=== PATIENT | male | born 1950 | race Caucasian/White ===

== ENCOUNTER 2017-05-05 23:50 | Emergency (ER) | payer OTHER ==
[2017-05-06] MEDS ORDERED: diltiaZEM INJ 5 MG/ML VIAL IVP STA (00:02)
[2017-05-06] MEDS ORDERED: diltiaZEM INJ 5 MG/ML VIAL ONE (00:07)
[2017-05-06] MEDS ORDERED: SODIUM CHLORIDE FLUSH 0.9% 10 ML SYRINGE IVP ONE (00:08)
[2017-05-06 00:17] LABS: PT - PROTHROMBIN TIME 10.9 secs (9.9-12.6)
[2017-05-06 00:23] LABS: ALBUMIN/GLOBULIN RATIO 1.7 (1.0-2.2); BILIRUBIN,TOTAL 0.6 mg/dL (0.2-1.0); BUN - BLOOD UREA NITROGEN 17 mg/dL (6-20); CARBON DIOXIDE - CO2 26 mmol/L (21-32); CHLORIDE 106 mmol/L (101-111); CREATININE 1.1 mg/dL (0.6-1.2); GFR - MDRD 67 (>89); GLUCOSE 112 mg/dL (70-100); LIPASE 60 U/L (22-51); MAGNESIUM 2.2 mg/dL (1.7-2.8); PHOSPHORUS 3.7 mg/dL (2.5-4.6); POTASSIUM 3.3 mmol/L (3.5-5.0); SODIUM 139 mmol/L (135-145); TOTAL PROTEIN 6.8 g/dL (6.7-8.2)
--- NOTE | 2017-05-06 00:33 | XRAY Preliminary Report ---
Exam: XR CHEST 1 VIEW IMPRESSION: Normal single view chest. [facility] SITE ID: [id number]
--- NOTE | 2017-05-06 00:40 | ED Physician Documentation ---
PD HPI CHEST PAIN - Stated complaint Stated Complaint: PANIC ATTACK - Chief complaint Chief Complaint: Cardiac - History obtained from History obtained from: Patient - History of Present Illness Timing - onset: How many minutes ago (45) Timing - onset during: Rest Timing - details: Abrupt onset, Still present Quality: Throbbing Location: Substernal, Left chest Associated symptoms: Shortness of air, Palpitations Similar symptoms before: No diagnosis Recently seen: Not recently seen - Additional information Additional information: Patient is a 67 year old male who is presenting to the emergency department for what he feels is a panic attack. patient states that he was lying down and he felt like his heart was racing and irregular. Patient states that he has been stressed about retiring and thought that may be what was causing his symptoms. Review of Systems Constitutional: denies: Fever, Chills Eyes: denies: Decreased vision, Photophobia Nose: denies: Rhinorrhea / runny nose, Congestion Throat: denies: Sore throat Cardiac: reports: Palpitations. denies: Chest pain / pressure, Calf pain Respiratory: denies: Dyspnea, Cough, Wheezing GI: denies: Abdominal Pain, Nausea, Vomiting Skin: denies: Rash, Lesions Musculoskeletal: denies: Neck pain, Back pain, Extremity pain Neurologic: denies: Generalized weakness, Focal weakness, Numbness Immunocompromised: denies: Immunocompromised PD PAST MEDICAL HISTORY - Past Medical History Past Medical History: Yes Cardiovascular: High cholesterol GI: GERD - Past Surgical History Past Surgical History: Yes General: Appendectomy - Present Medications Home Medications: Ambulatory Orders Medication Instructions Recorded Confirmed Aspirin [Mary Chewable] 81 mg PO DAILY 02/03/15 02/03/15 No Known Home Medications [No 02/03/15 02/03/15 Known Home Medications] - Allergies Allergies/Adverse Reactions: Allergies Allergy/AdvReac Type Severity Reaction Status Date / Time No Known Drug Allergies Allergy Verified 02/03/15 17:24 - Social History Does the pt smoke?: No Smoking Status: Never smoker Does the pt drink ETOH?: Yes ETOH Use: Wine, Liquor Does the pt have substance abuse?: No - Immunizations Immunizations are current?: No Immunizations: TDAP >10years/unknown - POLST Patient has POLST: No PD ED PE NORMAL - Vitals Vital signs reviewed: Yes (tachycardic) - General General: Alert and oriented X 3, Well developed/nourished - HEENT HEENT: Atraumatic, PERRL, Pharynx benign - Neck Neck: No JVD - Abdomen Abdomen: Soft, Non tender, Non distended - Derm Derm: Normal color, Warm and dry, No rash - Extremities Extremities: No deformity, Normal ROM s pain, No edema, No calf tenderness / cord - Neuro Neuro: Alert and oriented X 3, No motor deficit, No sensory deficit, Normal speech PD ED PE EXPANDED - General General: Alert, Anxious - Cardiac Cardiac: Tachy, Irregularly irregular - Respiratory Respiratory: Clear to ausultation fran Results - Vitals Vitals: Vital Signs - 24 hr 05/06/17 05/06/17 05/06/17 00:11 00:16 00:48 Temperature 37.1 C Heart Rate 148 H 96 128 H Respiratory 18 18 18 Rate Blood Pressure 153/128 H 137/88 H 128/65 O2 Saturation 100 98 99 05/06/17 01:10 Temperature Heart Rate 120 H Respiratory 16 Rate Blood Pressure 122/79 O2 Saturation 100 Oxygen O2 Source Room air - EKG (time done) 2358 Rate: Rate (enter#) (145) Rhythm: Atrial fibrillation [place]: Normal Ischemia: ST depression Other comments: Other comments (a fib with rvr, rate related ischemia) Compare to prior EKG: Old EKG unavailable Computer interpretation: Agree with computer 0020 Rate: Rate (enter#) (110) Rhythm: Atrial fibrillation Intervals: Normal MA Other comments: Other comments (still a fib at lower rate) Compare to prior EKG: Changed from prior EKG Computer interpretation: Agree with computer 0209 Rate: Rate (enter#) (79) Rhythm: NSR [place]: Normal Intervals: Normal MA QRS: Normal Ischemia: Normal ST segments Compare to prior EKG: Changed from prior EKG - Labs Labs: Laboratory Tests 05/06/17 05/06/17 05/06/17 00:01 00:01 00:01 PT 10.9 INR 1.0 Sodium 139 Potassium 3.3 L Chloride 106 Carbon Dioxide 26 Anion Gap 7.0 BUN 17 Creatinine 1.1 Estimated GFR (MDRD) 67 L Glucose 112 H Calcium 9.0 Phosphorus 3.7 Magnesium 2.2 Total Bilirubin 0.6 AST 23 ALT 28 Alkaline Phosphatase 52 Troponin I < 0.04 B-Natriuretic Peptide Total Protein 6.8 Albumin 4.3 Globulin 2.5 Albumin/Globulin Ratio 1.7 Lipase 60 H TSH Ethyl Alcohol < 5.0 05/06/17 05/06/17 00:01 00:01 PT INR Sodium Potassium Chloride Carbon Dioxide Anion Gap BUN Creatinine Estimated GFR (MDRD) Glucose Calcium Phosphorus Magnesium Total Bilirubin AST ALT Alkaline Phosphatase Troponin I B-Natriuretic Peptide 34 Total Protein Albumin Globulin Albumin/Globulin Ratio Lipase TSH 2.76 Ethyl Alcohol - Rads (name of study) chest x-ray Radiology: Final report received (within normal limits) Procedures - Procedural sedation Sedation prep: Informed consent, Time out completed, Last meal, AHA 1 - healthy Sedation medications: fentanyl, propofol Patient status during sedation: Drowsy, Responds to verbal, Vitals remained stable, Maintained airway, Recovered uneventfully Sedation recovery: Back to baseline - Cardioversion 1 Time of attempt: 01:50 Indication: Tachyarrhythmia Risks, benefits, alternatives explained to: Pt Prep: IV, O2, vehicle monitor technician, Pulse ox, Airway equip Meds: Fentanyl, Propofol CS via: Pads Sync: Biphasic, 100j Post cardioversion rhythm: A-fib Performed by: ED MD PD MEDICAL DECISION MAKING - ED course Complexity details: reviewed old records, reviewed results, re-evaluated patient , considered differential, d/w patient ED course: Patient was seen and examined at bedside. Patient was placed on a monitor and found to be in a fib at around 145 bpm. ekg was performed and did show a fib. Patient was asked whether or not he wanted chemical or electrical cardioversion and he said chemical. Patient was treated with 20mg of diltiazem and his rate went down to 90-110. as the medicine wore off, patient returned back up to the 130s so was placed on a cardizem drip with good response. Hospitalist was contacted and the case was discussed with him, it was decided patient would be admitted. While awaiting a floor bed patient stated that he wanted to try electric cardioversion. patient was successfully cardioverted at the first attempt at 100J. (see procedure note). Patient required no further work up at this time and was stable for discharge with outpatient follow up. - Critical Care Time(min): 30 Time Includes: Direct patient care Data interpretation: Labs, CXR, Cardiac output Departure - Departure Disposition: 01 Home, Self Care Clinical Impression: Atrial fibrillation Condition: Good Instructions: Atrial Fibrillation Dc Follow-Up: Renetta Hammer PA-C [Primary Care Provider] - Within 3 Days Comments: Your symptoms today were caused by a-fib. we were able to convert it with electricity. Now that you have had it before you are likely to get it again. there is no need to start medication at this point. You should continue with your daily aspirin. You should follow up with your pmd within the next few day for holter monitor. You should also cut back on your drinking as it could contributing to your a fib. You should return to the emergency department at any time if the symptoms return.
[2017-05-06] MEDS ORDERED: diltiaZEM INJ 125 MG in DEXTROSE 5% 100 ML IV STA (00:45)
[2017-05-06] MEDS ORDERED: POTASSIUM CHLORIDE 20 MEQ TABLET PO STA (00:45)
--- NOTE | 2017-05-06 00:50 | XRAY Report ---
EXAM: CHEST RADIOGRAPHY EXAM DATE: 05/06/2017 12:26 AM. CLINICAL HISTORY: Chest pressure. COMPARISON: 02/03/2015. TECHNIQUE: 1 view. FINDINGS: Lungs/Pleura: No focal opacities evident. No pleural effusion. No pneumothorax. Mediastinum: Within exam limitations, the cardiomediastinal contour is normal. Other: None. IMPRESSION: Normal single view chest. [facility] Referring Provider Line: [phone] SITE ID: [id number]
[2017-05-06] MEDS ORDERED: PROMETHAZINE 25 MG/1 ML VIAL IM PRN (00:53)
[2017-05-06] MEDS ORDERED: ACETAMINOPHEN 325 MG TABLET PO PRN (00:53)
[2017-05-06] MEDS ORDERED: ONDANSETRON 4 MG/2 ML VIAL IVP PRN (00:53)
[2017-05-06] MEDS ORDERED: ZOLPIDEM 5 MG TABLET PO PRN (00:53)
[2017-05-06] MEDS ORDERED: diltiaZEM INJ 125 MG in DEXTROSE 5% 100 ML IV SCH (00:53)
[2017-05-06] MEDS ORDERED: PROCHLORPERAZINE 10 MG/2 ML VIAL IVP PRN (00:53)
[2017-05-06] MEDS ORDERED: ALBUTEROL NEB 2.5 MG/3 ML INH PRN (00:53)
[2017-05-06] MEDS ORDERED: SODIUM CHLORIDE FLUSH 0.9% 10 ML SYRINGE IVP PRN (00:53)
[2017-05-06] MEDS ORDERED: HYDROcod/ACETAM 5/325 MG TABLET PO PRN (00:53)
[2017-05-06] MEDS ORDERED: diltiaZEM 30 MG TABLET PO SCH (01:00)
[2017-05-06] MEDS ORDERED: fentaNYL 100 MCG/2 ML VIAL ONE (02:02)
[2017-05-06] MEDS ORDERED: PROPOFOL 200 MG/20 ML VIAL IVP ONE (02:02)
[2017-05-06] MEDS ORDERED: fentaNYL 100 MCG/2 ML VIAL IVP STA (03:23)
[2017-05-06] MEDS ORDERED: PROPOFOL 200 MG/20 ML VIAL IVP STA (03:23)
[2017-05-06 05:47] VITALS: BP 117/69
[2017-05-06] MEDS ORDERED: SODIUM CHLORIDE FLUSH 0.9% 10 ML SYRINGE IVP SCH (06:00)
[2017-05-06] MEDS ORDERED: FAMOTIDINE 20 MG TABLET PO SCH (09:00)
[2017-05-06] MEDS ORDERED: ASPIRIN EC 81 MG TABLET PO SCH (09:00)
[2017-05-06] MEDS ORDERED: ENOXAPARIN 40 MG/0.4 ML SYRINGE SUBQ SCH (09:00)
== END 2017-05-06 05:48 | disposition home or self-care (01) ==
LOC: ED 23:50 → ICU 05-06 00:53 → UNDOADMIN 05-06 00:53 → ED 05-06 05:48
DX: I48.91 Unspecified atrial fibrillation (principal); R94.31 Abnormal electrocardiogram [ECG] [EKG]; E78.00 Pure hypercholesterolemia, unspecified; K21.9 Gastro-esophageal reflux disease without esophagitis; Z79.82 Long term (current) use of aspirin; R10.30 Lower abdominal pain, unspecified; K76.0 Fatty (change of) liver, not elsewhere classified
CPT/HCPCS: 36415; 71010; 74177; 80053; 80320; 83690; 83735; 83880; 84100; 84443; 84484; 85610; 92960; 93005; 94770; 96365; 96375; 99284; 99291; Q9967; 80061; 85025

== ENCOUNTER 2017-05-06 16:13 | Outpatient (CLI) | payer OTHER ==
[~2017-05-06 16:13] MED LIST: IOPAMIDOL-300 100 ML VIAL ONE; IOPAMIDOL-300 50 ML VIAL ONE
[2017-05-06] MEDS ORDERED: IOPAMIDOL-300 50 ML VIAL PO ONE (18:54)
[2017-05-06] MEDS ORDERED: IOPAMIDOL-300 100 ML VIAL IVP ONE (18:54)
--- NOTE | 2017-05-07 16:02 | CT Report ---
EXAM: CT ABDOMEN AND PELVIS EXAM DATE: 05/06/2017 06:58 PM. CLINICAL HISTORY: ABDOMINAL PAIN, SUPRAPUBIC. COMPARISONS: 06/17/2006. TECHNIQUE: Routine helical CT imaging was performed through the abdomen and pelvis. IV contrast: 100 cc Isovue-300. Enteric contrast: Positive. Reconstructions: Coronal and sagittal. In accordance with CT protocol optimization, one or more of the following dose reduction techniques w ere utilized for this exam: automated exposure control, adjustment of mA and/or KV based on patient s ize, or use of iterative reconstructive technique. FINDINGS: Lung Bases: Unremarkable. Liver: There is hepatic steatosis. No focal hepatic lesions are seen. Gallbladder/Bile Ducts: Unremarkable. Spleen: Normal. Pancreas: Normal. Adrenal Glands: Normal. Kidneys: Normal. No masses or hydronephrosis. Peritoneal Cavity/Bowel: No dilated or thick-walled bowel is seen. There is moderate stool within col on. No intraperitoneal free air or free fluid. No enlarged mesenteric or retroperitoneal lymph nodes. No evidence of appendicitis. Pelvic Organs: Normal. The bladder and visualized pelvic organs are within normal limits. Vasculature: No aneurysms or other significant abnormality. Bones: There is mild mid lumbar spine degenerative disease. Stable sclerotic focus within the right L 1 pedicle. Stable small mixed density lesion within the left iliac bone. Other: None. IMPRESSION: 1. No acute solid or hollow viscus organ abnormalities to account for the patient's abdominal pain. 2. There is hepatic steatosis. 3. There is moderate stool within colon. [facility] Referring Provider Line: [phone] SITE ID: [id number]
== END 2017-05-06 16:14 | disposition home or self-care (01) ==
LOC: DI 16:13
PROVIDERS: ATTEND Physician Assistant Medical
DX: R10.30 Lower abdominal pain, unspecified (principal); K76.0 Fatty (change of) liver, not elsewhere classified
CPT/HCPCS: 74177

== ENCOUNTER 2017-05-13 15:30 | Outpatient (CLI) | payer OTHER ==
--- NOTE | 2017-05-14 18:00 | Ultrasound Report ---
EXAM: CAROTID DOPPLER ULTRASOUND EXAM DATE: 05/13/2017 04:34 p.m. CLINICAL HISTORY: Visual disturbance in the right eye x 1. COMPARISON: None. TECHNIQUE: Real-time sonographic vascular imaging was performed by the digital photo printer through the caroti d arterial system with a linear transducer utilizing color-flow, Doppler flow and spectral analysis. Multiple publications sales representative static images were saved for review. FINDINGS: RIGHT: RCCA Prox: PSV 120 cm/sec. RCCA Dist: PSV 90 cm/sec, EDV 21 cm/sec. RECA: PSV 87 cm/sec. R Bulb: PSV 59 cm/sec, EDV 15 cm/sec, ICA/CCA ratio 0.7, degree of stenosis <50%, plaque estimate <50 %. DOMENIC Prox: PSV 74 cm/sec, EDV 22 cm/sec, ICA/CCA ratio 0.8, degree of stenosis <50%, plaque estimate <50%. DOMENIC Mid: PSV 80 cm/sec, EDV 30 cm/sec, ICA/CCA ratio 0.9, degree of stenosis <50%, plaque estimate < 50%. DOMENIC Dist: PSV 85 cm/sec, EDV 30 cm/sec, ICA/CCA ratio 0.9, degree of stenosis <50%, plaque estimate <50%. RVA: PSV 53 cm/sec. RVA flow direction: Antegrade. LEFT: LCCA Prox: PSV 120 cm/sec. LCCA Dist: PSV 76 cm/sec, EDV 18 cm/sec. LECA: PSV 98 cm/sec. L Bulb: PSV 57 cm/sec, EDV 13 cm/sec, ICA/CCA ratio 0.8, degree of stenosis <50%, plaque estimate <50 %. LICA Prox: PSV 71 cm/sec, EDV 20 cm/sec, ICA/CCA ratio 0.9, degree of stenosis <50%, plaque estimate <50%. LICA Mid: PSV 88 cm/sec, EDV 32 cm/sec, ICA/CCA ratio 1.2, degree of stenosis <50%, plaque estimate < 50%. LICA Dist: PSV 94 cm/sec, EDV 34 cm/sec, ICA/CCA ratio 1.2, degree of stenosis <50%, plaque estimate <50%. LVA: PSV 41 cm/sec. LVA flow direction: Antegrade. Other: There are heterogeneous areas of mild plaque throughout the common, internal, and external car otids bilaterally. IMPRESSION: Mild atherosclerotic plaque diffusely without clinically significant stenosis. Validated velocity measurements with angiographic measurements and velocity criteria are extrapolated from diameter data as defined by the Society of Radiologists in Ultrasound Consensus Conference Radi ology 2003; 229;340-346. [facility] Referring Provider Line: [phone] SITE ID: [id number]
== END 2017-05-13 15:31 | disposition home or self-care (01) ==
LOC: DI 15:30
PROVIDERS: ATTEND Physician Assistant Medical
DX: H53.9 Unspecified visual disturbance (principal); I48.0 Paroxysmal atrial fibrillation
CPT/HCPCS: 93880

== ENCOUNTER 2017-05-16 12:30 | Outpatient (CLI) | payer OTHER | END 2017-05-16 12:31 | disposition home or self-care (01) | LOC: DI 12:30 | PROVIDERS: ATTEND Physician Assistant Medical | DX: I48.0 Paroxysmal atrial fibrillation (principal) | CPT/HCPCS: 93306 ==

== ENCOUNTER 2017-06-02 09:03 | Outpatient (CLI) | payer MEDICARE, OTHER | END 2017-06-02 09:04 | disposition home or self-care (01) | LOC: SC 09:03 | PROVIDERS: ATTEND Specialist | DX: G47.30 Sleep apnea, unspecified (principal); R06.83 Snoring; I48.91 Unspecified atrial fibrillation; E66.9 Obesity, unspecified; Z68.25 Body mass index [BMI] 25.0-25.9, adult; G47.00 Insomnia, unspecified; R51 Headache | CPT/HCPCS: 99205; G0463; 99212 ==

== ENCOUNTER 2017-09-08 20:39 | Outpatient (CLI) | payer OTHER, MEDICARE | END 2017-09-08 20:40 | disposition home or self-care (01) | LOC: SC 20:39 | PROVIDERS: ATTEND Internal Medicine Pulmonary Disease | DX: G47.30 Sleep apnea, unspecified (principal); R06.83 Snoring | CPT/HCPCS: 95810 ==

== ENCOUNTER 2017-10-04 14:18 | Outpatient (CLI) | payer MEDICARE, OTHER | END 2017-10-04 14:19 | disposition home or self-care (01) | LOC: SC 14:18 | PROVIDERS: ATTEND Nurse Practitioner Family | DX: G47.61 Periodic limb movement disorder (principal); R06.83 Snoring | CPT/HCPCS: 99214; G0463; 99212 ==

== ENCOUNTER 2017-12-01 08:46 | Outpatient (CLI) | payer MEDICARE, OTHER ==
[2017-12-01 12:44] LABS: BASOPHILS # (AUTO) 0.1 10^3/uL (0.0-0.1); BASOPHILS % (AUTO) 0.7 %; EOSINOPHILS # (AUTO) 0.1 10^3/uL (0.0-0.7); EOSINOPHILS % (AUTO) 0.9 %; HGB - HEMOGLOBIN 14.1 g/dL (14.0-18.0); LYMPHOCYTES # (AUTO) 3.4 10^3/uL (1.5-3.5); LYMPHOCYTES % (AUTO) 40.2 %; MEAN CORPUSCULAR HEMOGLOBIN 32.6 pg (27.0-31.0); MEAN CORPUSCULAR HGB CONC 34.3 g/dL (32.0-36.0); MEAN CORPUSCULAR VOLUME 95.1 fL (80.0-94.0); MEAN PLATELET VOLUME 10.3 fL (7.4-11.4); MONOCYTES # (AUTO) 0.9 10^3/uL (0.0-1.0); MONOCYTES % (AUTO) 10.5 %; NEUTROPHILS % (AUTO) 47.7 %; PLT - PLATELET COUNT 243 10^3/uL (130-450); RED BLOOD COUNT 4.32 10^6/uL (4.70-6.10); RED CELL DISTRIBUTION WIDTH 13.8 % (12.0-15.0); WHITE BLOOD COUNT 8.4 x10^3/uL (4.8-10.8)
[2017-12-01 13:07] LABS: ALBUMIN 4.1 g/dL (3.2-5.5); ALBUMIN/GLOBULIN RATIO 1.6 (1.0-2.2); BILIRUBIN,TOTAL 0.8 mg/dL (0.2-1.0); CALCIUM 8.9 mg/dL (8.5-10.3); TOTAL PROTEIN 6.6 g/dL (6.7-8.2)
== END 2017-12-01 08:47 ==
LOC: LAB.WCP 08:46
PROVIDERS: ATTEND Family Medicine
DX: R10.9 Unspecified abdominal pain (principal)
CPT/HCPCS: 36415; 80053; 85025

== ENCOUNTER 2019-05-02 08:00 | Outpatient (CLI) | payer MEDICARE, OTHER ==
[2019-05-02 12:20] LABS: BASOPHILS % (AUTO) 0.4 %; EOSINOPHILS % (AUTO) 0.2 %; HGB - HEMOGLOBIN 15.2 g/dL (14.0-18.0); LYMPHOCYTES # (AUTO) 3.6 10^3/uL (1.5-3.5); MEAN CORPUSCULAR HEMOGLOBIN 32.5 pg (27.0-31.0); MEAN CORPUSCULAR HGB CONC 33.9 g/dL (32.0-36.0); MEAN CORPUSCULAR VOLUME 96.1 fL (80.0-94.0); MEAN PLATELET VOLUME 11.8 fL (7.4-11.4); MONOCYTES # (AUTO) 0.7 10^3/uL (0.0-1.0); MONOCYTES % (AUTO) 8.9 %; NEUTROPHILS # (AUTO) 3.6 10^3/uL (1.5-6.6); NEUTROPHILS % (AUTO) 45.4 %; PLT - PLATELET COUNT 316 10^3/uL (130-450); RED BLOOD COUNT 4.67 10^6/uL (4.70-6.10); RED CELL DISTRIBUTION WIDTH 12.8 % (12.0-15.0)
[2019-05-02 13:13] LABS: ALBUMIN 4.9 g/dL (3.2-5.5); ALBUMIN/GLOBULIN RATIO 1.8 (1.0-2.2); ALKALINE PHOSPHATASE 57 IU/L (42-121); ALT ALANINE AMINOTRANSFERASE 34 IU/L (10-60); AST ASPARTATE AMINOTRANSFERASE 29 IU/L (10-42); BILIRUBIN,TOTAL 0.8 mg/dL (0.2-1.0); BUN - BLOOD UREA NITROGEN 12 mg/dL (6-20); CALCIUM 9.4 mg/dL (8.5-10.3); CARBON DIOXIDE - CO2 30 mmol/L (21-32); CHLORIDE 105 mmol/L (101-111); CHOLESTEROL 234 mg/dL; GFR - MDRD 74 (>89); GLUCOSE 115 mg/dL (70-100); HDL CHOLESTEROL 79 mg/dL; LDL CHOLESTEROL,CALCULATED 145 mg/dL; LDL/HDL RATIO 1.8 (<3.6); SODIUM 142 mmol/L (135-145); TOTAL PROTEIN 7.7 g/dL (6.7-8.2); VLDL CHOLESTEROL 10 mg/dL
== END 2019-05-02 23:59 | disposition home or self-care (01) ==
LOC: LAB.WCP 08:00
PROVIDERS: ATTEND Nurse Practitioner Family
DX: I48.0 Paroxysmal atrial fibrillation (principal); E78.9 Disorder of lipoprotein metabolism, unspecified
CPT/HCPCS: 36415; 80053; 80061; 83721; 85025

== ENCOUNTER 2019-07-04 10:19 | Outpatient (CLI) | payer MEDICARE, OTHER ==
[2019-07-04 19:02] LABS: PSA FREE 0.34 ng/mL (0.16-2.81)
[2019-07-04 19:03] LABS: PSA TOTAL 1.13 ng/mL (0.000-2.000)
== END 2019-07-04 23:59 | disposition home or self-care (01) ==
LOC: LAB.WCP 10:19
PROVIDERS: ATTEND Nurse Practitioner Family
DX: N40.1 Benign prostatic hyperplasia with lower urinary tract symptoms (principal); N13.8 Other obstructive and reflux uropathy
CPT/HCPCS: 36415; 84153; 84154

== ENCOUNTER 2019-07-17 06:46 | Outpatient (CLI) | payer MEDICARE, OTHER ==
--- NOTE | 2019-07-17 13:59 | Ultrasound Report ---
Reason: GROIN PAIN, LT Procedure Date: 07/17/2019 Accession Number: [id number] / [id number] Procedure: US - Pelvic Limited or F/U CPT Code: Final Report FULL RESULT: EXAM: INGUINAL ULTRASOUND EXAM DATE: 07/17/2019 06:59 AM. CLINICAL HISTORY: GROIN PAIN, LT. COMPARISON: None. TECHNIQUE: Real-time sonographic imaging of the inguinal canals and vascular structures, including color-flow, was performed by the commercial crabber. Multiple training representative static images were saved for review. FINDINGS: Hernia: None identified with or without Valsalva. Soft Tissues: Normal. No fluid collections or adenopathy. Other: None. IMPRESSION: 1. No left inguinal hernia. 2. No additional mass, adenopathy or collection. [facility]
== END 2019-07-17 06:47 | disposition home or self-care (01) ==
LOC: DI 06:46
PROVIDERS: ATTEND Nurse Practitioner Family
DX: R10.32 Left lower quadrant pain (principal)
CPT/HCPCS: 76857

== ENCOUNTER 2019-08-03 09:16 | Outpatient (CLI) | payer MEDICARE, OTHER ==
--- NOTE | 2019-08-03 15:44 | XRAY Report ---
Reason: CHRONIC LOW BACK PAIN Procedure Date: 08/03/2019 Accession Number: [id number] / [id number] Procedure: WCP - Lumbar Spine 2 View CPT Code: Final Report FULL RESULT: EXAM: LUMBOSACRAL SPINE RADIOGRAPHY EXAM DATE: 08/03/2019 09:16 AM. CLINICAL HISTORY: CHRONIC LOW BACK PAIN. COMPARISONS: ABDOMEN/PELVIS W/ 05/06/2017 6:36 PM. TECHNIQUE: 3 views. FINDINGS: Alignment: Mild left convex lower thoracic right convex lumbar scoliosis. 6 mm spondylotic retrolisthesis L2 on L3. Bones: Five [id number] lumbar vertebral bodies are present. No fractures or bone lesions. Disks: Mild disk height loss at L2-L3. Mild anterior endplate osteophyte formation throughout the lower thoracic and lumbar spine. Facets: No significant facet hypertrophy or sclerosis is identified. Sacroiliac Joints: Unremarkable. Soft Tissues: Minimal aortic calcification. IMPRESSION: 1. Degenerative disk disease which is mild at L2-L3 and minimal at other lower thoracic and lumbar levels. 2. Mild spondylotic retrolisthesis of L2 on L3. [facility]
== END 2019-08-03 23:59 | disposition home or self-care (01) ==
LOC: DI.WCP 09:16
PROVIDERS: ATTEND Nurse Practitioner Family
DX: M51.36 Other intervertebral disc degeneration, lumbar region (principal); M43.16 Spondylolisthesis, lumbar region
CPT/HCPCS: 72100

== ENCOUNTER 2019-08-29 09:47 | Outpatient (CLI) | payer MEDICARE, OTHER ==
[2019-08-29] MEDS ORDERED: IOVERSOL 320 50 ML VIAL ONE (09:59)
[2019-08-29] MEDS ORDERED: IOVERSOL 320 100 ML VIAL IVP ONE ×2 (09:59→17:42)
[2019-08-29 10:40] LABS: ALBUMIN 4.2 g/dL (3.2-5.5); ALBUMIN/GLOBULIN RATIO 1.6 (1.0-2.2); BILIRUBIN,TOTAL 0.6 mg/dL (0.2-1.0); CALCIUM 8.9 mg/dL (8.5-10.3); TOTAL PROTEIN 6.9 g/dL (6.7-8.2)
[2019-08-29] MEDS ORDERED: IOVERSOL 320 50 ML VIAL PO ONE (17:42)
--- NOTE | 2019-08-30 08:49 | CT Report ---
Reason: ABD PAIN Procedure Date: 08/29/2019 Accession Number: [id number] / [id number] Procedure: CT - Abdomen/Pelvis W CPT Code: Final Report FULL RESULT: EXAM: CT ABDOMEN AND PELVIS EXAM DATE: 08/29/2019 11:27 AM. CLINICAL HISTORY: Abdominal pain. COMPARISONS: ABDOMEN/PELVIS W/ 05/06/2017 6:36 PM. TECHNIQUE: Routine helical CT imaging was performed through the abdomen and pelvis. IV contrast: 100 mL Optiray 320. Enteric contrast: Yes. Reconstructions: Coronal and sagittal. In accordance with CT protocol optimization, one or more of the following dose reduction techniques were utilized for this exam: automated exposure control, adjustment of mA and/or KV based on patient size, or use of iterative reconstructive technique. FINDINGS: Lung Bases: Unremarkable. Liver: Normal. No masses. Gallbladder/Bile Ducts: Unremarkable. Spleen: Normal. Pancreas: Normal. Adrenal Glands: Normal. Kidneys: Normal. No masses or hydronephrosis. Peritoneal Cavity/Bowel: Moderate volume of stool throughout the colon, similar to comparison. No bowel obstruction. No evidence of colitis or diverticulitis. Small bowel appears within normal limits. No dilatation of the stomach. No free air or free fluid. No pathologically enlarged lymph nodes. The appendix is well visualized and normal. Pelvic Organs: Normal. The bladder and visualized pelvic organs are within normal limits. Vasculature: No aneurysms or other significant abnormality. Bones: No significant abnormality. Other: None. IMPRESSION: Moderate volume of stool throughout the colon similar to previous. No acute findings detected. No bowel obstruction. [facility]
== END 2019-08-29 09:48 | disposition home or self-care (01) ==
LOC: DI 09:47
PROVIDERS: ATTEND Nurse Practitioner Family
DX: R10.30 Lower abdominal pain, unspecified (principal); E78.5 Hyperlipidemia, unspecified
CPT/HCPCS: 36415; 74177; 80053; Q9967

== ENCOUNTER 2020-01-22 08:00 | Outpatient (CLI) | payer MEDICARE, OTHER ==
[2020-01-22 13:13] LABS: CHOL/HDL RATIO 2.1 (<5.0); CHOLESTEROL 187 mg/dL; HDL CHOLESTEROL 88 mg/dL; LDL CHOLESTEROL,CALCULATED 87 mg/dL; VLDL CHOLESTEROL 12 mg/dL
== END 2020-01-22 23:59 | disposition home or self-care (01) ==
LOC: LAB.WCP 08:00
PROVIDERS: ATTEND Nurse Practitioner Family
DX: E78.9 Disorder of lipoprotein metabolism, unspecified (principal)
CPT/HCPCS: 36415; 80061; 83721

== ENCOUNTER 2021-11-21 09:40 | Outpatient (CLI) | payer MEDICARE, OTHER ==
[2021-11-21 14:37] LABS: BASOPHILS # (AUTO) 0.1 10^3/uL (0.0-0.1); BASOPHILS % (AUTO) 0.5 %; EOSINOPHILS # (AUTO) 0.1 10^3/uL (0.0-0.7); EOSINOPHILS % (AUTO) 0.7 %; HCT - HEMATOCRIT 41.7 % (42.0-52.0); HGB - HEMOGLOBIN 13.9 g/dL (14.0-18.0); LYMPHOCYTES # (AUTO) 5.5 10^3/uL (1.5-3.5); LYMPHOCYTES % (AUTO) 50.8 %; MEAN CORPUSCULAR HEMOGLOBIN 32.1 pg (27.0-31.0); MEAN CORPUSCULAR HGB CONC 33.3 g/dL (32.0-36.0); MEAN CORPUSCULAR VOLUME 96.3 fL (80.0-94.0); MONOCYTES # (AUTO) 0.8 10^3/uL (0.0-1.0); MONOCYTES % (AUTO) 7.4 %; NEUTROPHILS # (AUTO) 4.4 10^3/uL (1.5-6.6); NEUTROPHILS % (AUTO) 40.4 %; PLT - PLATELET COUNT 274 10^3/uL (130-450); RED BLOOD COUNT 4.33 10^6/uL (4.70-6.10); RED CELL DISTRIBUTION WIDTH 13.1 % (12.0-15.0); WHITE BLOOD COUNT 10.8 x10^3/uL (4.8-10.8)
[2021-11-21 14:47] LABS: BILIRUBIN,URINE NEGATIVE (NEGATIVE); GLUCOSE, URINE (UA) NEGATIVE (NEGATIVE); KETONES,URINE (UA) NEGATIVE (NEGATIVE); LEUKOCYTE ESTERASE, URINE NEGATIVE (NEGATIVE); NITRITE,URINE NEGATIVE (NEGATIVE); OCCULT BLOOD,URINE NEGATIVE (NEGATIVE); PROTEIN,URINE NEGATIVE (NEGATIVE); UROBILINOGEN,URINE 0.2 (NORMAL) E.U./dL (NORMAL)
[2021-11-21 14:48] LABS: CLARITY,URINE CLEAR (CLEAR)
[2021-11-21 15:38] LABS: ALBUMIN 4.3 g/dL (3.2-5.5); ALBUMIN/GLOBULIN RATIO 1.7 (1.0-2.2); ALKALINE PHOSPHATASE 45 IU/L (42-121); ALT ALANINE AMINOTRANSFERASE 17 IU/L (10-60); AST ASPARTATE AMINOTRANSFERASE 21 IU/L (10-42); BILIRUBIN,TOTAL 0.8 mg/dL (0.2-1.0); BUN - BLOOD UREA NITROGEN 15 mg/dL (6-20); CALCIUM 9.1 mg/dL (8.5-10.3); CARBON DIOXIDE - CO2 28 mmol/L (21-32); CHLORIDE 105 mmol/L (101-111); CHOL/HDL RATIO 1.9 (<5.0); CHOLESTEROL 190 mg/dL; CREATININE 0.9 mg/dL (0.6-1.2); GFR - MDRD 83 (>89); GLUCOSE 106 mg/dL (70-100); HDL CHOLESTEROL 98 mg/dL; LDL CHOLESTEROL,CALCULATED 82 mg/dL; LDL/HDL RATIO 0.8 (<3.6); POTASSIUM 4.5 mmol/L (3.5-5.0); SODIUM 141 mmol/L (135-145); TOTAL PROTEIN 6.8 g/dL (6.7-8.2); TRIGLYCERIDES 50 mg/dL; VLDL CHOLESTEROL 10 mg/dL
[2021-11-21 15:56] LABS: BACTERIA,URINE Rare /HPF (None Seen); RBC,URINE 0-5 /HPF (0-5); SQUAMOUS EPITHELIAL CELL,UR FEW Squamous (<= Few); WBC,URINE 0-3 /HPF (0-3)
[2021-11-21 15:57] LABS: EPITHELIAL CELLS,UR FEW Transitional /HPF (<= Few)
[2021-11-21 18:06] LABS: DIFFERENTIAL COMMENT MANUAL=AUTO DIFF; PLATELET ESTIMATE, MANUAL NORMAL (130-450,000) (NORMAL); PLATELET MORPHOLOGY NORMAL APPEARANCE (NORMAL); RBC MORPHOLOGY (MULTIPLE) NORMAL APPEARANCE (NORMAL); WBC MORPHOLOGY (MULTIPLE) NORMAL APPEARANCE (NORMAL)
== END 2021-11-21 09:41 | disposition home or self-care (01) ==
LOC: LAB.N 09:40
PROVIDERS: ATTEND Nurse Practitioner Family
DX: E78.5 Hyperlipidemia, unspecified (principal); N40.1 Benign prostatic hyperplasia with lower urinary tract symptoms; N13.8 Other obstructive and reflux uropathy; R35.0 Frequency of micturition; N39.46 Mixed incontinence; Z79.899 Other long term (current) drug therapy
CPT/HCPCS: 36415; 80053; 80061; 81001; 83721; 84153; 85025; 87086